=== PATIENT | female | born 1990 | race Two or more races ===

== ENCOUNTER 2020-11-16 17:46 | Observation (INO) | payer SELFPAY ==
[2014-06-12 22:05] VITALS: BP 114/81
[2020-11-16] MEDS ORDERED: ACETAMINOPHEN 325 MG TABLET. PO PRN (18:00)
[2020-11-16] MEDS ORDERED: IV RINGERS,LACTATED 1000ML 1,000 ML IV SCH (18:00)
[2020-11-16 18:29] LABS: BILIRUBIN,URINE SMALL (NEG); CLARITY,URINE CLEAR; COLOR,URINE AMBER; NITRITE,URINE NEGATIVE (NEG); PROTEIN,URINE NEGATIVE (NEG-TRACE)
[2020-11-16 18:35] LABS: BARBITURATES NEG (NEG); BENZODIAZEPINES NEG (NEG); CANNABINOIDS NEG (NEG); COCAINE NEG (NEG); METHADONE NEG (NEG); OPIATES NEG (NEG); PHENCYCLIDINE NEG (NEG)
[2020-11-16 18:37] LABS: AMPHETAMINE/METHAMPHETAMINE NEG (NEG)
[2020-11-16 18:39] LABS: BACTERIA,URINE FEW /HPF (0-FEW); RBC,URINE OCC /HPF (0-2)
[2020-11-16] MEDS ORDERED: hydrOXYzine 25 MG TABLET PO PRN (20:00)
== END 2020-11-16 22:41 | disposition home or self-care (01) ==
LOC: 3 SO LND 17:46
PROVIDERS: ADMIT Obstetrics & Gynecology; ATTEND Obstetrics & Gynecology
DX: O62.9 Abnormality of forces of labor, unspecified (principal); Z3A.39 39 weeks gestation of pregnancy; Z79.899 Other long term (current) drug therapy
CPT/HCPCS: 59025; 80307; 81001; 87086; G0378; G0379